=== PATIENT | female | born 1990 | race Caucasian/White ===

== ENCOUNTER 2017-03-04 15:33 | Outpatient (CLI) | payer OTHER ==
[2017-03-04 16:13] LABS: BILIRUBIN,DIRECT 0.2 mg/dL (0.0-0.4)
== END 2017-03-04 15:34 ==
LOC: LAB 15:33
PROVIDERS: ATTEND Physician Assistant
DX: L70.0 Acne vulgaris (principal); Z79.899 Other long term (current) drug therapy
CPT/HCPCS: 36415; 80076; 82465; 84478

== ENCOUNTER 2017-04-15 08:52 | Outpatient (CLI) | payer OTHER ==
[2017-04-15 23:11] LABS: DIRECT BILIRUBIN <0.2 mg/dL (<0.4); TOTAL PROTEIN 7.5 g/dL (6.0-8.5)
== END 2017-04-15 08:53 ==
LOC: LAB 08:52
PROVIDERS: ATTEND Physician Assistant
DX: L70.0 Acne vulgaris (principal); Z79.899 Other long term (current) drug therapy
CPT/HCPCS: 36415; 80076; 82465; 84478

== ENCOUNTER 2017-05-20 08:47 | Outpatient (CLI) | payer OTHER ==
[2017-05-20 22:02] LABS: DIRECT BILIRUBIN <0.2 mg/dL (<0.4); TOTAL PROTEIN 7.5 g/dL (6.0-8.5)
== END 2017-05-20 08:50 ==
LOC: LAB 08:47
PROVIDERS: ATTEND Physician Assistant
DX: L70.0 Acne vulgaris (principal); Z79.899 Other long term (current) drug therapy
CPT/HCPCS: 36415; 80076; 82465; 84478

== ENCOUNTER 2017-06-24 08:21 | Outpatient (CLI) | payer OTHER ==
[2017-06-24 20:00] LABS: DIRECT BILIRUBIN <0.2 mg/dL (<0.4); TOTAL PROTEIN 7.2 g/dL (6.0-8.5)
== END 2017-06-24 10:05 ==
LOC: LAB 08:21
PROVIDERS: ATTEND Physician Assistant
DX: L70.0 Acne vulgaris (principal); Z79.899 Other long term (current) drug therapy
CPT/HCPCS: 36415; 80076; 82465; 84478

== ENCOUNTER 2019-03-25 21:33 | Emergency (ER) | payer OTHER ==
--- NOTE | 2019-03-25 21:35 | ED Physician Documentation ---
General Adult - HISTORIAN Historian: patient - HPI Stated Complaint: left eye pain x 3 days Chief Complaint: Eye Problems Onset: days ago (3) Timing: still present Severity: moderate Further Comments: yes (She states after being ouside at a football game she had some minor pain in the left eye. She sates the pain has increased. She had contacts in at the time. She has take Tylenol for pain. She is wearing sunglasses due to increased pain with light. She has no change in her vision. No floaters or cutain.) Last known Well Code/Unknown Code: Unknown - ROS CONST: no problems - PAST HX Past History: none Immunizations: UTD Allergies/Adverse Reactions: Allergies Allergy/AdvReac Type Severity Reaction Status Date / Time No Known Drug Allergies Allergy Unverified 12/17/14 11:30 Home Medications: Ambulatory Orders Medication Instructions Recorded Pnv No.95/Ferrous Fum/Folic AC 1 each PO DAILY u2 09/26/15 [ [place]] - SOCIAL HX Smoking History: non-smoker Alcohol Use: none Drug Use: none - FAMILY HX Family History: No - REVIEWED ASSESSMENTS Nursing Assessment Reviewed: Yes Vitals Reviewed: Yes Procedures - Eye Procedure Antibiotic Oinment/Drps Admin: left eye (florciene used to see a small abrasion on the medial upper left eye) General Adult Physical Exam - PHYSICAL EXAM GENERAL APPEARANCE: mild distress EENT: BARBER, other (conjuctiva red and watering ) NECK: normal inspection RESPIRATORY: no resp distress, chest non-tender, breath sounds normal CVS: reg rate & rhythm, heart sounds normal ABDOMEN: soft, normal bowel sounds, no distension, non-tender BACK: normal inspection SKIN: warm/dry, normal color EXTREMITIES: non-tender NEURO: oriented X3 Discharge Clincal Impression: Corneal abrasion Qualifiers: Encounter type: initial encounter Laterality: left Qualified Code(s): S05.02XA - Injury of conjunctiva and corneal abrasion without foreign body, left eye, initial encounter Referrals: Primary Doctor,No [REFERRING] - 2 Days Comments: 1. Gentamycin 1 drop left eye three times per day 2. Keep eye covered x 24 hours 3. Eye protection outside 4. Follow up with Eye provider Wednesday 5. Return to ER for any increasing concerns Condition: Stable Disposition: 01 HOME, SELF-CARE Decision to Admit: NO Date of Decison to Admit: 03/25/19 Decision Time: 22:37
[2019-03-25] MEDS ORDERED: TETRACAINE 0.5% OPTH 5 ML BOTTLE ONE (21:44)
[2019-03-25] MEDS ORDERED: FLUORESCEIN SODIUM 1 STRIP TEST ONE (21:46)
[2019-03-25] MEDS ORDERED: PROPARACAINE HCL 0.5% OPTH 15 ML BOTTLE OD ONE (21:46)
[2019-03-25] MEDS ORDERED: KETOROLAC TROMETHAMINE 60 MG/2 ML VIAL IM ONE (21:56)
[2019-03-25] MEDS ORDERED: GENTAMICIN SULFATE 0.3% OPTH SOL OP ONE (22:23)
[2019-03-25 23:01] VITALS: BP 123/69
== END 2019-03-25 22:43 | disposition home or self-care (01) ==
LOC: ED 21:33
DX: H57.12 Ocular pain, left eye (principal)
CPT/HCPCS: 96372; 99281; 99284; A9270; J1885